=== PATIENT | male | born 1975 | race Caucasian/White ===

== ENCOUNTER → 2023-03-02 13:54 | Outpatient (CLI) | payer BC, SELFPAY ==
--- NOTE | 2023-03-02 14:06 | XR_ITS ---
FINAL REPORT CLINICAL HISTORY: right foot pain COMPARISON: none FINDINGS: RIGHT FOOT 3 views of the right foot were obtained. There is no acute fracture or dislocation. Visualized joint spaces are normally aligned. Soft tissues are unremarkable. IMPRESSION: No acute bony abnormality. Reviewed, Interpreted and Dictated by Pan Miguel MD Transcribed by Jenifer Enriquez Authenticated and [facility]
--- NOTE | 2023-03-02 16:10 | ECG_ITS ---
APPROVED REPORT Exam: Resting ECG HR:63 bpm ECG Measurements Heart Rate 63 AXES MT 200 P -11 QRSd 97 QRS 62 QT 388 T 57 QTc 396 Conclusion SINUS RHYTHM Normal ECG UNCONFIRMED REPORT Electronically signed by : Jaden Donohue MD 03/03/2023 18:34:12
--- NOTE | 2023-03-02 16:16 | XR_ITS ---
FINAL REPORT TECHNIQUE: Chest PA & Lateral CLINICAL HISTORY: Edema, pre op work-up COMPARISON: None FINDINGS: 2 views of the chest were performed. The heart size is normal. The mediastinum is within normal limits. There is no acute cardiopulmonary process. There are no pleural effusions. There is no pneumothorax. The bony thorax appears intact. There is a small amount of scarring present in the left lung base. IMPRESSION: No acute cardiopulmonary process. Reviewed, Interpreted and Dictated by Pan Miguel MD Transcribed by Rebecca Salazar Authenticated and [facility]
== END ==
PROVIDERS: PCP Nurse Practitioner Family; Visit Provider Podiatrist
DX: M79.671 Pain in right foot (principal); R60.9 Edema, unspecified
CPT/HCPCS: 71046; 73630; 93005

== ENCOUNTER → 2023-03-09 12:28 | Outpatient (CLI) | payer BC, SELFPAY ==
[2023-03-09 12:55] LABS: Basophils # 0.1 K/mm3 (0-0.2); Basophils % 0.5 % (0.1-2.0); Eosinophils # 0.1 K/mm3 (0.0-0.4); Hematocrit 46.3 % (42.0-52.0); Hemoglobin 15.4 g/dL (14.1-18.0); Lymphocytes # 2.4 K/mm3 (0.7-4.5); Lymphocytes % 23.6 % (10-50); Mean Corpuscular HGB Conc 33.3 g/dL (31.8-35.4); Mean Corpuscular Hemoglobin 29.3 pg (27.0-31.2); Mean Corpuscular Volume 87.9 fl (80-94); Mean Platelet Volume 7.4 fl (7.4-10.4); Monocytes # 0.4 K/mm3 (0.1-1.0); Monocytes % 3.7 % (1.7-9.3); Neutrophils # 7.3 K/mm3 (1.8-7.8); Neutrophils % 71.3 % (37.0-80.0); Platelet Count 286 K/mm3 (142-424); Red Blood Count 5.27 M/mm3 (4.60-6.20); Red Cell Distribution Width 13.3 % (11.5-17.5); White Blood Count 10.2 K/mm3 (4.8-10.8)
[2023-03-09 14:03] LABS: Chloride 104 mmol/L (98-107)
[2023-03-09 14:04] LABS: Potassium 3.9 mmoL/L (3.5-5.1); Sodium 141 mmol/L (136-145)
[2023-03-09 14:06] LABS: Alanine Aminotransferase 38 U/L (12-78); Alkaline Phosphatase 75 U/L (38-126); Aspartate Amino Transferase 41 U/L (17-59); Bilirubin,Total 0.5 mg/dl (0.2-1.3); Blood Urea Nitrogen 10 mg/dl (9-20); Estimated Glomerular Filt Rate 103 ml/min (>60); GFR (African American) 125 ML/MIN (>60)
[2023-03-09 14:07] LABS: Albumin Level 4.3 g/dl (3.5-5.0); Albumin/Globulin Ratio 1.7 (1.1-1.8); Calcium 9.6 mg/dl (8.4-10.2); Carbon Dioxide 23 mmol/L (22.0-30.0); Globulin 2.6 g/dL (1.3-3.2); Glucose 163 mg/dl (74-100); Total Protein,Serum 6.9 g/dl (6.3-8.2)
== END ==
PROVIDERS: PCP Nurse Practitioner Family; Visit Provider Podiatrist
DX: R60.9 Edema, unspecified (principal)
CPT/HCPCS: 80053; 85025

== ENCOUNTER 2023-03-18 06:01 | Day surgery (SDC) | payer BC, SELFPAY ==
[2023-03-16 12:54] VITALS: BMI 29.8
[2023-03-18] VITALS (11 sets, daily range): BP systolic 119–162; BP diastolic 66–96; PULSE 67–96; RESP 14–23; TEMP 36.1–36.7; O2SAT 90–98
--- NOTE | 2023-03-18 06:53 | P.PNANES_ITS ---
[facility] Disclaimer: The information contained in this section may have been updated after the patient was seen, as this information can be updated by other users. Medical History Right foot pain Surgical History (Updated 03/18/23 @ 06:17 by Efrain Hernandez RN) History of toe surgery Family History (Updated 03/16/23 @ 12:56 by Jenifer Dodson RN) Other No significant family history Social History (Updated 03/16/23 @ 12:56 by Jenifer Dodson RN) Smoking Status: Smoker, status unknown alcohol intake: current substance use type: denies use current occupational status: employed Travel in the last 8 weeks: None [facility] Anesthesia Checklist Patient Identification Patient Identification: Arm Band and Family Structural Data Admitted From: Home Planned Operative Procedure/s: Excision calcaneus spur right foot. Achilles tendon repair. Consent for Planned Operative Procedure(s) Verified: Yes Verified Documents: Surgical Consent and History and Physical NPO Status Verified Time NPO: 00:00 Additional verifications Patient : No Anesthesia Reactions: No Hx Blood Transfusions: No Blood Transfusion Reaction: No Cephalosporin Allergy: No Previous Colonoscopy: No Airway Assessment Mallampati Score:: Class II C-Spine Mobility Assessed: Yes TMJ Mobility Assessed: Yes Dentition: Good Dentition Neurological Assessment Level of Consciousness: Awake, Alert, Appropriate and Follows Commands Hx Seizures: No Numbness or tingling in extremities: No Anesthesia Plan Anesthesia Risk discussed: Yes ASA Class: I Anesthesia Type: MAC w/Block
--- NOTE | 2023-03-18 09:58 | P.PNANES_ITS ---
[facility] Anesthesia Record Part I Anesthesia Record I Intake, IV Amount: 2,100 Hydration: Adequate Estimated blood loss (mL): 0 Urine output (mL): 0 Blood Pressure: 140/70 SaO2: 98 Pulse Rate: 96 Airway Patency: Patent Respiratory Rate: 14 Temperature: 97 F Patient is:: Awake and Stable Stable to PACU at:: 09:40
--- NOTE | 2023-03-18 10:34 | SUR.PHASEI ---
0940: Patient presented to PACU with swelling to bilateral eyes and lips. Ice pack was placed on patient eye to reduce swelling.
--- NOTE | 2023-03-18 10:56 | P.PNANES_ITS ---
[facility] Anesthesia Record Part II Anesthesia Record Part II Discharge Time: 10:14 Destination: Surgical Day Care (OP Surgery) PACU nurse assessment reviewed?: Yes Patient Condition:: Good Anesthesia Complications:: None Swallowing reflex intact?: Yes Airway Patency: Patent Cyanosis?: No Blood Pressure: 142/85 SaO2: 95 Respiratory Rate: 15 Pulse Rate: 73 Temperature: 97 F Mental Status: Alert & Oriented Pain level:: 0 Nausea and/or vomitting:: None Intake, IV Amount: 0 Hydration: Adequate
--- NOTE | 2023-03-18 13:05 | EXP.OP.NOTE ---
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 Post-op Diagnosis:: Same Procedure performed:: Achilles repair and lengthening along with spur excision; Denisse's deformity resected right foot. Surgeon:: Roly Coffman DPM [employer] CONTROL ENGINEER:: Juan M العلي Anesthesia: GETA and other (popliteal block) Estimated blood loss (mL): 3 Operative findings:: extremely prominent spurring of Achilles attachment to right calcaneus; and enlarged Denisse's deformity right side. Operative note:: Patient been wheeled to the operating room on the [facility]. Anesthesia performed general anesthesia and intubated the patient and then the patient was situated in a prone position on the operating room table. A thigh tourniquet was applied. The foot and ankle are scrubbed and prepped in the usual use aseptic manner. Timeout is performed in the room with all present in agreement. An Esmarch bandage used to exsanguinate the patient's right foot and ankle and thigh tourniquet was inflated to 300 mmHg. Attention was directed to the posterior aspect of the patient's Achilles and a linear incision is made through the skin all the way to the very enlarged Achilles spur and Denisse's level. Dissection was then carried down through subcutaneous tissues at the deep fascia and the Achilles tendon was exposed. At this point dissected the Achilles tendon freed from the very large exostosis it from that and identifying also very prominent Denisse's deformity. Using sagittal bone saw the exuberant spurring and Denisse's deformity were resected and remodeled with bone saw and rongeur's. At this point a Z-type tenotomy was performed on the Achilles tendon, to promote its lengthening. After this was done, I prepped the calcaneus with the Arthrex Achilles speed bridge using 2 separate 2.6 fiber tack anchors proximally and 2 separate 3.9 mm bio composite swivel locks distally. The sutures were directed through the tendon and anchored back down appropriately onto the posterior calcaneus, noted to be very smooth and secure to the bleeding calcaneus. Application of Graft jacket: A 2 x 2 graft jacket was then wrapped around the Achilles tendon at the Z-lengthening site and pad over the Achilles with 0 Vicryl and 2-0 Vicryl. The entire Achilles was completely enclosed with the graft, from proximal to the intact tendon/lower muscle level, to the distal tendon anchored to the calcaneus. Utilizing 2-0 and 3-0 Vicryl the peritenon and deep fascia was approximated in a running fashion. The area was rinsed with copious amounts of sterile normal saline. 2-0 Vicryl was used to close the peritenon and deeper fascial structures. I also then used 3-0 Vicryl for subcutaneous closure. Revised the skin at the thicker area where the tissues been agitated due to the now resected spurring. And closed the skin in layers with the 3-0 Vicryl and then the skin with 3-0 nylon in a combination of running suture as well as mattress suture technique. I dressed the surgical incision site with Xeroform gauze and well-padded with 4 x 4's and Caitlin. I then applied a stockinette and well-padded with layers of soft roll or cast padding. Then applied a 4 inch wide posterior splint of Ortho-Glass. Secured this with an outer elastic bandage. Tourniquet was released from the thigh up to for prompt hyperemic response noted to all digits of the right foot. The patient was then positioned onto the gurney and extubated by anesthesia. He was then transferred to recovery with vital signs stable vascular status intact to his right foot. He will then be discharged to home per anesthesia criteria later this morning. Discussed the procedure with his after the surgery; and sent the patient home with Valium, oxycodone, ibuprofen 800, and Phenergan. [facility]. Call if any problems
== END 2023-03-18 11:00 | disposition home or self-care (01) ==
PROVIDERS: PCP Nurse Practitioner Family; Visit Provider Podiatrist
PROC: (CPT 27685; principal; 2023-03-18 07:30)
DX: M77.31 Calcaneal spur, right foot (principal); M21.6X1 Other acquired deformities of right foot
CPT/HCPCS: 27685; 28119; 15275; 96374; C1713; J2405; J2710; Q4107